=== PATIENT | female | born 1940 | race Caucasian/White ===

== ENCOUNTER → 2017-09-10 | Day surgery (SDC) | payer OTHER | END | disposition home or self-care (01) | LOC: FMAMMOTONE 09:06 | PROVIDERS: ATTEND Internal Medicine | PROC: 0HBU3ZX Excision of Left Breast, Percutaneous Approach, Diagnostic (ICD-10-PCS; principal; 2017-09-10) | DX: D24.2 Benign neoplasm of left breast (principal); R92.1 Mammographic calcification found on diagnostic imaging of breast | CPT/HCPCS: 19081; 87899; 88305-TC; A4648 ==

== ENCOUNTER 2024-07-29 23:12 | Emergency (ER) | payer OTHER ==
[2024-07-29 23:25] VITALS: PULSE 66; RESP 18; TEMP 98.3; BMI 27.2
[2024-07-30 01:23] LABS: BASO % 0.2 % (0-2.0); EOS % 16.2 % (0-4.5); HEMATOCRIT 36.4 % (32.4-45.2); HEMOGLOBIN 11.9 GM/dL (10.7-15.3); LYMPH % 9.6 % (8-40); MCH 28.8 pg (25.7-33.7); MCHC 32.6 g/dl (32.0-36.0); MEAN CELL VOLUME 88.3 fl (80-96); MEAN PLT VOLUME 6.8 fl (7.5-11.1); MONO % 7.5 % (3.8-10.2); NEUT % 66.5 % (42.8-82.8); PLATELET COUNT 247 10^3/uL (134-434); RBC 4.12 M/mm3 (3.60-5.2); RDW 14.9 % (11.6-15.6); WHITE BLOOD COUNT 8.1 K/mm3 (4.0-10.0)
[2024-07-30 01:24] LABS: PH,URINE 6.5 (5.0-8.0); URINE APPEARANCE CLEAR; URINE BILIRUBIN NEGATIVE (NEGATIVE); URINE COLOR YELLOW; URINE GLUCOSE (UA) NEGATIVE (NEGATIVE); URINE KETONE NEGATIVE (NEGATIVE); URINE LEUK ESTERASE TRACE (NEGATIVE); URINE NITRITE NEGATIVE (NEGATIVE); URINE PROTEIN NEGATIVE (NEGATIVE); URINE UROBILINOGEN 0.2 mg/dL (0.2-1.0)
[2024-07-30 01:56] LABS: POTASSIUM 4.5 mmol/L (3.5-5.1)
[2024-07-30 02:05] LABS: ALBUMIN 3.6 g/dl (3.4-5.0); BILIRUBIN,TOTAL 0.2 mg/dL (0.2-1); BLOOD UREA NITROGEN 25.5 mg/dL (7-18); TOT PROT 7.6 g/dl (6.4-8.2)
[2024-07-30 02:26] VITALS: BP 170/80
[2024-07-30 04:18] LABS: EPI CELLS 3.5 /uL (0-25.1); URINE RBC 12.7 /uL (0-23.9); URINE WBC 8 /uL (0-25.8)
[2024-07-30 04:19] LABS: URINE BACTERIA 60.7 /uL (0-1359)
== END 2024-07-30 02:53 | disposition home or self-care (01) ==
LOC: JER 23:12
DX: I10 Essential (primary) hypertension (principal)
CPT/HCPCS: 36415; 80053; 81003; 84484; 85025; 87086; 99283-25